=== PATIENT | male | born 1985 | race Caucasian/White ===

== ENCOUNTER 2018-08-25 20:01 | Emergency (ER) | payer OTHER ==
[2018-08-25] MEDS ORDERED: Lidocaine 1% 10 ML MDV ONE (20:10)
[2018-08-25] MEDS: Diphtheria,Pertussis(Acell),Tetanus Vaccine 0.5 ML SDV inactive IM ONE (20:11)
--- NOTE | 2018-08-26 13:36 | EDM.PDOC ---
ED HPI GENERAL MEDICAL PROBLEM - General Chief Complaint: General Stated Complaint: FISH HOOK Time Seen by Provider: 08/25/18 20:20 Source of Information: Reports: Patient History Limitations: Reports: No Limitations - History of Present Illness INITIAL COMMENTS - FREE TEXT/NARRATIVE: This is a 33yo M here for a fish hook of the left thumb. He was fishing in [place] and while he did catch a large Muskie his thumb got in the way of retrieving it. He denies recent tetanus. No other concerns or issues. Onset: Sudden Location: Reports: Upper Extremity, Left Quality: Reports: Ache Severity: Mild Improves with: Reports: None Worsens with: Reports: Movement - Related Data Allergies Allergy/AdvReac Type Severity Reaction Status Date / Time amoxicillin Allergy Cannot Verified 08/25/18 20:03 Remember gabapentin Allergy Cannot Verified 08/25/18 20:03 Remember Home Meds: Home Meds Diltiazem [Diltiazem XR] 240 mg PO DAILY 08/25/18 [History] Omeprazole 20 mg PO ACBREAKFAST 08/25/18 [History] PARoxetine [Paxil CR] 50 mg PO DAILY 08/25/18 [History] Past Medical History Cardiovascular History: Reports: Hypertension Gastrointestinal History: Reports: GERD, Pancreatitis Psychiatric History: Reports: Depression Social & Family History - Family History Family Medical History: Noncontributory - Tobacco Use Smoking Status *Q: Unknown Ever Smoked Second Hand Smoke Exposure: No - Caffeine Use Caffeine Use: Reports: Coffee, Soda - Recreational Drug Use Recreational Drug Use: No ED ROS GENERAL - Review of Systems Review Of Systems: ROS reveals no pertinent complaints other than HPI. ED EXAM, GENERAL - Physical Exam Exam: See Below Exam Limited By: No Limitations General Appearance: Alert, WD/WN, No Apparent Distress Eye Exam: Bilateral Eye: EOMI, PERRL Ears: Normal External Exam Nose: Normal Inspection Throat/Mouth: Normal Inspection Head: Atraumatic, Normocephalic Neck: Normal Inspection Respiratory/Chest: No Respiratory Distress Cardiovascular: Normal Peripheral Pulses Extremities: Other (left thumb foreign body embedded - large muskie tri-hook with 2 other hooks cut off) ED GENERAL MEDICAL PROCEDURES - Additional/Other Procedure(s) Other (Free Text) Procedure(s): Left thumb prepped sterilely and 1% lidocaine 2mL injected. Muskie hook was retracted with some difficulty with a 18 ga needle. No complications and patient tolerated procedure well. Dressing placed and counseled on wound care and f/u. Course - Vital Signs Last Recorded V/S: Last Vital Signs Temp 37.2 C 08/25/18 20:05 Pulse 94 08/25/18 20:05 Resp 20 08/25/18 20:05 BP 162/103 H 08/25/18 20:05 Pulse Ox 97 08/25/18 20:05 - Orders/Labs/Meds Orders: Active Orders 24 hr Category Date Time Status Vaccines to be Administered [RC] PER UNIT ROUTINE Care 08/25/18 20:10 Active Meds: Medications Discontinued Medications Generic Name Dose Route Start Last Admin Trade Name Freq PRN Reason Stop Dose Admin Diphtheria/Tetanus/Acell Pertussis 0.5 ml 08/25/18 20:10 08/25/18 20:11 Boostrix IM 08/25/18 20:11 0.5 ml .ONCE ONE Administration Departure - Departure Time of Disposition: 21:00 Disposition: Home, Self-Care 01 Condition: Good Clinical Impression: Fish hook injury of left thumb Qualifiers: Encounter type: initial encounter Qualified Code(s): S69.92XA - Unspecified injury of left wrist, hand and finger(s), initial encounter - Discharge Information Instructions: Wound Infection, [id number] Forms: ED Department Discharge Additional Instructions: Keep affected area covered through tonight. Tomorrow, remove bandage and gently cleanse with soap and warm water, dab dry, then apply thin strip of antibiotic ointment and cover with band aid. Be sure to keep area clean and dry , cover with glove when out fishing to avoid exposing open area to possible bacteria. Watch site for signs and symptoms of infection present including increased redness, increased swelling, increased pain or tenderness to touch, foul drainage and or fever present. Should any of these symptoms occur, return to be seen for further treatment. Otherwise, may follow up as needed. Call with any questions. - Problem List & Annotations (1) Fish hook injury of left thumb SNOMED Code(s): 879419083 Code(s): S69.92XA - UNSP INJURY OF LEFT WRIST, HAND AND FINGER(S), INIT ENCNTR Status: Acute Qualifiers: Encounter type: initial encounter Qualified Code(s): S69.92XA - Unspecified injury of left wrist, hand and finger(s), initial encounter - Problem List Review Problem List Initiated/Reviewed/Updated: Yes - My Orders Last 24 Hours: My Active Orders 08/25/18 20:10 Vaccines to be Administered [RC] PER UNIT ROUTINE - Assessment/Plan Last 24 Hours: My Active Orders 08/25/18 20:10 Vaccines to be Administered [RC] PER UNIT ROUTINE Plan: Counseled on wound care. Discussed close monitoring and f/u. Rtc or ER as needed if any further concerns. Tetanus given.
== END 2018-08-25 20:30 | disposition home or self-care (01) ==
LOC: LB.ED 20:01
DX: S60.352A Superficial foreign body of left thumb, initial encounter (principal); Z23 Encounter for immunization; Z88.1 Allergy status to other antibiotic agents; Z88.8 Allergy status to other drugs, medicaments and biological substances; I10 Essential (primary) hypertension; F32.9 Major depressive disorder, single episode, unspecified; W45.8XXA Other foreign body or object entering through skin, initial encounter
CPT/HCPCS: 90471; 90715; 99282; J2001